=== PATIENT | female | born 1970 | race Caucasian/White ===

== ENCOUNTER 2017-01-06 09:49 | Emergency (ER) | payer OTHER ==
[~2017-01-06] VITALS: Ht 160 cm; Wt 121.0 kg
[~2017-01-06 09:49] MED LIST: CLIN-72 PO; GLIM2TAB PO; METF1000 PO
[2017-01-06 09:52] VITALS: Ht 160 cm; Wt 121.0 kg
[2017-01-06] MEDS ORDERED: AMOX500C2 PO (10:32)
[2017-01-06] MEDS ORDERED: IBUP-1542 PO (10:32)
[2017-01-06] MEDS ORDERED: BENZ100C70 PO (10:32)
[2017-01-06] MEDS ORDERED: OFLO5DRO7 BOTH EARS (10:39)
--- NOTE | 2017-01-06 17:43 | ERD ---
ER Documentation Chief Complaint Chief Complaint bilat ear pain with drainage x 2 days HPI 46-year-old female patient with a past medical history of diabetes, hyperlipidemia, presents to the ED complaining of bilateral ear pain with discharge started 3 days ago. Reports that she has noticed some yellow discharge and had some itchy ears. States that she started to also have a dry cough. Reports that she has tried taking [id number] medication without relief. Denies any foreign bodies in her ears. Denies any chest pain, shortness breath, nausea, vomiting, diarrhea, abdominal pain, neck stiffness. Denies any sick contacts. ROS All systems reviewed and are negative except as per history of present illness. Medications Home Meds Active Scripts Ofloxacin Otic (Ofloxacin Otic) 5 Ml Drops, 5 DROP BOTH EARS BID for 10 Days, # 1 BOTTLE Prov:ENRICO KHAN PA-C 01/06/17 Ibuprofen* (Motrin*) 600 Mg Tab, 600 MG PO Q6, #30 TAB Prov:ENRICO KHAN PA-C 01/06/17 Benzonatate* (Tessalon Perle*) 100 Mg Capsule, 100 MG PO Q8H Y for COUGH, #20 CAP Prov:ENRICO KHAN PA-C 01/06/17 Amoxicillin* (Amoxicillin*) 500 Mg Cap, 500 MG PO BID for 10 Days, CAP Prov:ENRICO KHAN PA-C 01/06/17 Reported Medications Clindamycin Hcl* (Clindamycin Hcl*) 150 Mg Capsule, 150 MG PO Q6 2 TABS 12/19/11 Metformin Hcl* (Metformin Hcl*) 1,000 Mg Tablet, PO BID 11/24/11 Glimepiride* (Glimepiride*) 2 Mg Tablet, PO BID 11/24/11 Allergies Allergies: Coded Allergies: No Known Allergy (Verified , 01/06/17) PMhx/Soc History of Surgery: No Anesthesia Reaction: No Hx Neurological Disorder: No Hx Respiratory Disorders: No Hx Cardiac Disorders: No Hx Psychiatric Problems: No Hx Miscellaneous Medical Probl: Yes (DM) Hx Alcohol Use: No Hx Substance Use: No Hx Tobacco Use: No Physical Exam Vitals Vital Signs Date Time Temp Pulse Resp B/P Pulse Ox O2 Delivery O2 Flow Rate FiO2 01/06/17 09:52 97.0 99 19 174/99 97 Physical Exam Const: Tyz-jdy-cfvnelpri, well-nourished. In no acute distress. Head: Atraumatic, normocephalic Eyes: Normal Conjunctiva without injection. No purulent discharge. PERRL. EOMI ENT: Normal external ear. Bilateral ear canal with erythema. Tympanic membrane decreased light reflex bilaterally. Tenderness to palpation of bilateral pinna and tragus. No tenderness to palpation of mastoid bilaterally. Slight purulent discharge noted in ear canals. Nasal canal clear with normal turbinates. Moist oropharynx without tonsillar exudates. Non-erythematous pharynx. Uvula midline. No drooling. No trismus. Neck: Full range of motion. No meningismus. No cervical lymphadenopathy. Resp: Clear to auscultation bilaterally. No wheezing, rhonchi, rales, or crackles. No accessory muscle use. No retractions. Cardio: Regular rate and rhythm. No murmurs, rubs or gallops. Abd: Soft, non tender, non distended. Normal bowel sounds. No palpable masses. No rebound tenderness. No guarding. Skin: No petechiae or rashes Back: No midline tenderness. No CVA tenderness. Ext: No cyanosis, or edema. Neur: Awake and alert. Psych: Normal Mood and Affect Procedures/MDM 46-year-old female patient with a past medical history of diabetes, hyperlipidemia presents to the ED complaining of bilateral ear pain, headache, cough that started 3 days ago. Patient is afebrile nontoxic appearing. Patient has blood pressure is 174/99. Patient's blood pressure was elevated (> 120/80) but appears stable without evidence of hypertension emergency or urgency. The patient was counseled about the risks of hypertension and urged to pursue outpatient monitoring and therapy within a week with their primary care physician. Patient will be treated for otitis media, otitis externa and a viral upper respiratory infection. Patient does not have tenderness to palpation of mastoid. Low suspicion for mastoiditis. Patient's physical exam include lungs which were clear to auscultation and a normal pulse oximetry. Patient is speaking in full sentences. There is a low suspicion for pneumonia, epiglottitis , croup, viral/strep pharyngitis, sinusitis, peritonsillar abscess, retropharyngeal abscess, meningitis, Pritehs's angina, sepsis, acute abdomen or other emergent conditions. Discharge medications: Tylenol, Amoxicillin, Ofloxacin Drops, Tessalon Perles Follow up with primary care physician in 1-2 days. Instructed patient to return to the ED sooner for any worsening symptoms. Patient's questions were answered. Patient understood and agreed with discharge plan. Patient discharged stable. Departure Diagnosis: Primary Impression: Ear pain Laterality: bilateral Qualified Code: H92.03 - Otalgia of both ears Additional Impressions: Cough Headache Headache type: unspecified Headache chronicity pattern: unspecified pattern Intractability: not intractable Qualified Code: R51 - Nonintractable headache, unspecified chronicity pattern, unspecified headache type Sore throat Condition: Stable Patient Instructions: Otitis Media, Abx Tx (Adult), Uri, Viral, No Abx (Child) , External Ear Infection (Adult) Referrals: [facility] YOU HAVE RECEIVED A MEDICAL SCREENING EXAM AND THE RESULTS INDICATE THAT YOU DO NOT HAVE A CONDITION THAT REQUIRES URGENT TREATMENT IN THE EMERGENCY DEPARTMENT. FURTHER EVALUATION AND TREATMENT OF YOUR CONDITION CAN WAIT UNTIL YOU ARE SEEN IN YOUR DOCTORS OFFICE WITHIN THE NEXT 1-2 DAYS. IT IS YOUR RESPONSIBILITY TO MAKE AN APPOINTMENT FOR [facility] CARE. IF YOU HAVE A PRIMARY DOCTOR --you should call your primary doctor and schedule an appointment IF YOU DO NOT HAVE A PRIMARY DOCTOR YOU CAN CALL OUR PHYSICIAN REFERRAL HOTLINE AT IF YOU CAN NOT AFFORD TO SEE A PHYSICIAN YOU CAN CHOSE FROM THE FOLLOWING [facility] [address] [facility]. [facility] [address] [facility]. [facility] [address] [facility]. [facility] [address] [facility]. [facility] [address] [facility]. [facility]. [address] [facility] YOU HAVE RECEIVED A MEDICAL SCREENING EXAM AND THE RESULTS INDICATE THAT YOU DO NOT HAVE A CONDITION THAT REQUIRES URGENT TREATMENT IN THE EMERGENCY DEPARTMENT. FURTHER EVALUATION AND TREATMENT OF YOUR CONDITION CAN WAIT UNTIL YOU ARE SEEN IN YOUR DOCTORS OFFICE WITHIN THE NEXT 1-2 DAYS. IT IS YOUR RESPONSIBILITY TO MAKE AN APPOINTMENT FOR FOLOW-UP CARE. IF YOU HAVE A PRIMARY DOCTOR --you should call your primary doctor and schedule and appointment IF YOU DO NOT HAVE A PRIMARY DOCTOR YOU CAN CALL OUR PHYSICIAN REFERRAL HOTLINE AT . IF YOU CAN NOT AFFORD TO SEE A PHYSICIAN YOU CAN CHOSE FROM THE FOLLOWING [facility] INSTITUTIONS: [facility] [address] [place] [address] [facility] [address] [place] [address] [facility] [address] [place] [address] [facility] URGENT CARE/SPECIALTIES Additional Instructions: Call your primary care doctor TOMORROW for an appointment during the next 2-3 days.See the doctor sooner or return here if your condition worsens before your appointment time. ENRICO KHAN PA-C Jan 06, 2017 17:43
== END 2017-01-06 11:08 | disposition home or self-care (01) ==
LOC: FTE 09:49
DX: H66.93 Otitis media, unspecified, bilateral (principal); J02.9 Acute pharyngitis, unspecified; E11.9 Type 2 diabetes mellitus without complications; Z79.84 Long term (current) use of oral hypoglycemic drugs
CPT/HCPCS: 99284

== ENCOUNTER 2017-06-05 12:14 | Inpatient (IN) | END 2017-06-10 12:55 | disposition home or self-care (01) | DRG 155 ==

== ENCOUNTER 2017-10-07 20:48 | Emergency (ER) | END 2017-10-07 23:25 | disposition home or self-care (01) ==

== ENCOUNTER 2017-11-05 10:10 | Emergency (ER) | END 2017-11-05 15:02 | disposition short-term general hospital (02) ==

== ENCOUNTER 2017-11-08 13:48 | Inpatient (IN) | END 2017-11-09 14:19 | disposition home or self-care (01) | DRG 247 ==

== ENCOUNTER 2018-04-21 15:26 | Emergency (ER) | payer OTHER ==
[~2018-04-21] VITALS: Ht 152.4 cm; Wt 118.2 kg
[~2018-04-21 15:26] MED LIST changes: +ASPI-817 PO; +ATOR40TA68 PO; -CLIN-72 PO; +CLOP75TA27 PO; +FLUT16SP17 NASAL; -GLIM2TAB PO; +INSU100I12 SQ; +INSU100I33 SC; +LIRA0.6P SQ; +LOSA25TA2 PO; -METF1000 PO; +METO-319 PO; +NICO-546 TRANSDERM; +NITR0.4T32 SL; +SERT50TA6 PO
[2018-04-21 15:32] VITALS: Ht 152.4 cm; Wt 118.2 kg
[2018-04-21] MEDS ORDERED: ERGO500013 PO (16:09)
[2018-04-21] MEDS ORDERED: LORA0.5T PO (16:10)
[2018-04-21] MEDS ORDERED: ASPI-817 PO (16:10)
[2018-04-21] MEDS ORDERED: GLIM2TAB PO (16:11)
[2018-04-21] MEDS ORDERED: CLOP75TA19 PO (16:11)
[2018-04-21] MEDS ORDERED: INSU100I33 SC (16:12)
[2018-04-21] MEDS ORDERED: METO-319 PO (16:13)
[2018-04-21] MEDS ORDERED: NITR0.4T39 SL (16:13)
[2018-04-21] MEDS ORDERED: GABA100C14 PO (16:14)
[2018-04-21] MEDS ORDERED: OMEP40CA6 PO (16:14)
[2018-04-21] MEDS ORDERED: SPIR25TA PO (16:15)
[2018-04-21] MEDS ORDERED: INSU100I12 SQ (16:16)
--- NOTE | 2018-04-21 18:09 | ERD ---
ER Documentation Chief Complaint Chief Complaint LEFT CHEST PAIN RADIATING TO LEFT SHOULDER. PA 2 MONTHS AGO HPI This is a 47-year-old female with a past medical history of hypertension, hyperlipidemia, diabetes, coronary artery disease with a previous PA status post stenting x3 4 months ago, CHF, anxiety is presenting with a transient episode of palpitations, significant anxiousness, midsternal chest pressure and tingling to her hands bilaterally. This is the 7-year anniversary of her mother's and [place] were [place] when the patient started to feel very overwhelmed. The patient does admit to marijuana use today as well. She does not endorse any lightheadedness or dizziness. She does not endorse nausea or vomiting. She was not diaphoretic during this episode. The patient's symptoms lasted approximately 30 minutes, and they have since resolved. The patient reports that this does not feel like her previous heart attack. The patient denies feeling sick recently. The patient denies fever or chills. The patient has had no headache or vision changes. The patient does not endorse neck or back pain. The patient denies abdominal pain. The patient denies changes to bowel movements or urination. The patient has had no focal deficits. The patient has had no weakness or numbness or tingling to the face or extremities. ROS All systems reviewed and are negative except as per history of present illness. Medications Home Meds Reported Medications Insulin Lispro (Humalog Kwikpen U-100) 100 Unit/1 Ml Insuln.pen, 28 UNIT SQ QPM, EA 04/21/18 Spironolactone* (Aldactone*) 25 Mg Tablet, 25 MG PO BID, #60 TAB 04/21/18 Omeprazole* (Omeprazole*) 40 Mg Capsule.dr, 40 MG PO DAILY, #30 CAP 04/21/18 Gabapentin* (Gabapentin*) 100 Mg Capsule, 100 MG PO BID, #90 CAP 04/21/18 Metoprolol Succinate* (Toprol XL*) 50 Mg Tab.er.24h, 50 MG PO DAILY, #30 TAB 04/21/18 Nitroglycerin* (Nitrostat*) 0.4 Mg Tab.subl, 0.4 MG SL Q5MIN PRN for CHEST PAIN, BOTTLE 04/21/18 Insulin Glargine,Hum.rec.anlog (Basaglar Kwikpen U-100) 100 Unit/1 Ml Insuln.pen, 30 UNIT SC QHS, EA 04/21/18 Clopidogrel Bisulfate* (Clopidogrel Bisulfate*) 75 Mg Tablet, 75 MG PO DAILY, #30 TAB 04/21/18 Glimepiride* (Glimepiride*) 2 Mg Tablet, 2 MG PO WITH BREAKFAST, TAB 04/21/18 Aspirin* (Aspirin* EC) 81 Mg Tablet.dr, 81 MG PO DAILY, TAB 04/21/18 Lorazepam* (Lorazepam*) 0.5 Mg Tablet, 0.5 MG PO HS PRN for ANXIETY, TAB 04/21/18 Ergocalciferol (Vitamin D2) (VITAMIN D2) 50,000 Unit Capsule, 58463 UNIT PO Q7D, CAP 04/21/18 Discontinued Reported Medications Fluticasone Propionate* (Fluticasone Propionate* Nasal) 50 Mcg/Nageezi - 16 Gm Nageezi.susp, 1 SPRAY NASAL BID, #1 BOTTLE TO EACH NOSTRIL 11/05/17 Sertraline Hcl* (Sertraline Hcl*) 50 Mg Tablet, 50 MG PO DAILY, #30 TAB 11/05/17 Liraglutide (Victoza 2-Brian) 0.6 Mg/0.1 Ml Pen.injctr, 1.2 MG SQ DAILY, SYR 11/05/17 Discontinued Scripts Nitroglycerin* (Nitroglycerin* SL) 0.4 Mg Tab.subl, 0.4 MG SL Q5MIN PRN for CHEST PAIN, #1 BOTTLE 3 Refills Prov:MARA LAURA 11/09/17 Clopidogrel Bisulfate (Clopidogrel) 75 Mg Tablet, 75 MG PO DAILY for 30 Days, TAB 11 Refills Prov:MARA LAURA 11/09/17 Atorvastatin* (Atorvastatin*) 40 Mg Tablet, 40 MG PO QHS, #30 TAB 3 Refills Prov:MARA LAURA 11/09/17 Nicotine* (Nicotine* Patch) 21 mg/day Patch, 1 PATCH TRANSDERM DAILY for 30 Days Prov:MARA LAURA 11/09/17 Insulin Lispro (Humalog Kwikpen U-100) 100 Unit/1 Ml Insuln.pen, 10 UNIT SQ AC A for 30 Days, EA 3 Refills Prov:MARA LAURA 11/09/17 Aspirin* (Aspirin* EC) 81 Mg Tablet.dr, 81 MG PO DAILY for 30 Days, 11 Refills Prov:MARA LAURA 11/09/17 Losartan Potassium* (Cozaar*) 25 Mg Tablet, 25 MG PO DAILY for 30 Days, TAB 3 Refills Prov:MARA LAURA 11/09/17 Insulin Glargine,Hum.rec.anlog (Basaglar Kwikpen U-100) 100 Unit/1 Ml Insuln.pen, 30 UNIT SC QHS for 30 Days, EA 3 Refills Prov:MARA LAURA 11/09/17 Metoprolol Succinate* (Toprol XL*) 50 Mg Tab.er.24h, 50 MG PO DAILY, #30 TAB 3 Refills Prov:MARA LAURA 11/09/17 Allergies Allergies: Uncoded Allergies: ANTIBIOTICS ( PT DOES NOT REMEMBER) (Allergy, Intermediate, 06/05/17) PMhx/Soc History of Surgery: Yes (stent x 3) Anesthesia Reaction: No Hx Neurological Disorder: No Hx Respiratory Disorders: No Hx Cardiac Disorders: Yes (rue dvt, cad, htn,high chol) Hx Psychiatric Problems: No Hx Miscellaneous Medical Probl: No Hx Alcohol Use: No Hx Substance Use: No Hx Tobacco Use: Yes Smoking Status: Current every day smoker FmHx Family History: diabetes Physical Exam Vitals Vital Signs Date Temp Pulse Resp B/P (MAP) Pulse Ox O2 O2 Flow FiO2 Time Delivery Rate 04/21/18 96 26 114/65 99 Room Air 19:25 (81) 04/21/18 98.5 110 16 160/80 99 15:32 (106) Physical Exam Const: No apparent distress, well-developed, well-nourished Head: Normocephalic, Atraumatic Eyes: Normal Conjunctiva. Extraocular movements intact. Pupils equal, round and reactive to light ENT: Normal External Ears, Nose and Mouth. Neck: Full range of motion. No meningismus. Resp: Clear to auscultation bilaterally, No wheezes, rales or rhonchi Cardio: Regular rate and rhythm. No murmurs, rubs or gallops Abd: Obesity, soft, non tender, non distended. Normal bowel sounds Skin: No petechiae or rashes Back: No midline tenderness. No CVA tenderness Ext: No cyanosis, or edema Neur: Awake and alert, oriented 4. Cranial nerves intact. No facial droop. Normal strength, sensation and coordination. Psych: Normal Mood and Affect Result Diagram: 04/21/18 1551 04/21/18 1551 Results 24 hrs Laboratory Tests Test 04/21/18 15:51 04/21/18 18:35 White Blood Count 10.2 10^3/ul Red Blood Count 4.97 10^6/ul Hemoglobin 13.5 g/dl Hematocrit 41.8 % Mean Corpuscular Volume 84.1 fl Mean Corpuscular Hemoglobin 27.2 pg Mean Corpuscular Hemoglobin Concent 32.3 g/dl Red Cell Distribution Width 13.5 % Platelet Count 351 10^3/UL Mean Platelet Volume 8.8 fl Immature Granulocytes % 0.500 % Neutrophils % 62.2 % Lymphocytes % 28.5 % Monocytes % 6.2 % Eosinophils % 2.0 % Basophils % 0.6 % Nucleated Red Blood Cells % 0.0 /100WBC Immature Granulocytes # 0.050 10^3/ul Neutrophils # 6.3 10^3/ul Lymphocytes # 2.9 10^3/ul Monocytes # 0.6 10^3/ul Eosinophils # 0.2 10^3/ul Basophils # 0.1 10^3/ul Nucleated Red Blood Cells # 0.0 10^3/ul Sodium Level 138 mmol/L Potassium Level 4.1 mmol/L Chloride Level 99 mmol/L Carbon Dioxide Level 26 mmol/L Anion Gap 13 Blood Urea Nitrogen 11 mg/dl Creatinine 0.37 mg/dl Est Glomerular Filtrat Rate mL/min > 60 mL/min Glucose Level 318 mg/dl Calcium Level 9.6 mg/dl Troponin I < 0.012 ng/ml < 0.012 ng/ml Creatine Kinase < 20 IU/L Creatine Kinase Index Creatinine Kinase MB (Mass) < 0.22 ng/ml Procedures/MDM MDM The patient's presentation warrants further investigation. Previous medical records, if available, were reviewed. LABS The patient's laboratory testing was obtained and reviewed. No emergent treatment was required unless described below. CBC: No E/o systemic infection or severe anemia or thrombocytopenia Chemistry: No E/o severe acidosis or alkalosis or renal failure or liver disease. Hyperglycemia without diabetic ketoacidosis Troponin: No E/o acute ischemia x 2 CKMB: Within normal limits EKG EKG read by me: Rate/Rhythm: Mild sinus tachycardia at 107 bpm with a PAC present Intervals: Normal Bland: Normal Impression: No evidence of acute ischemia. sinus tachycardia Repeat EKG read by me: Rate/Rhythm: Regular rate and rhythm at a rate of 96 bpm Intervals: Normal Bland: Normal Impression: No evidence of ischemia or arrhythmia IMAGING Imaging and Radiology interpretation reviewed. CXR FINDINGS: The heart is not enlarged. Mediastinum is not widened. No hilar masses seen. Lungs are clear of any infiltrates. There is no effusion or pneumothorax. The osseous structures appear normal. IMPRESSION: No evidence for active cardiopulmonary disease. Electronically viewed and signed by .Franco Owens MD, MD on 04/21/2018 16:07 TREATMENT/DISPOSITION The patient symptoms are most consistent with anxiety. The patient used THC/CBD today. The patient was also stressed regarding the anniversary of her mother's . The patient felt very overwhelmed and developed symptoms that appear consistent with an anxiety reaction. That said, the patient has a significant cardiac history including coronary artery disease requiring previous stenting. A full cardiac workup was completed. The patient's troponin and EKG are reassuring. The patient's repeat EKG and troponin remained reassuring. A CK-MB was also sent off that was normal. I have low suspicion for acute coronary syndrome. The patient's chest xray does not reveal pneumonia or pneumothorax or pleural effusions or pulmonary edema. The patient does not have a widened mediastinum and does not have signs or symptoms concerning for thoracic aortic aneurysm or dissection. The patient does not have pneumomediastinum or signs concerning for esophageal tear or rupture. The patient has no clinical or radiographic signs of pericardial effusion or tamponade. The patient does not have pneumoperitoneum and I have decreased suspicion of viscus perforation as possible referred pain. The patient does not have a history of heart failure and I have low suspicion for this. The patient does not have a diagnosis of COPD and is not wheezing today. The patient is not tachypneic or hypoxic. The patient is breathing comfortably and without pleuritic pain. The patient is not on hormonal therapy. The patient has no history of clotting or bleeding disorders. The patient has no calf tenderness. The patient has had no hemoptysis. I have decreased suspicion for PE. The patient's HEART score is equal to or less than 3. This stratifies the patient into the low risk (<1%) group for an major adverse cardiac event within the next 30 days. Shared decision making was enacted. The risks and benefits of admission and discharge were discussed with the patient and it was ultimately decided that the patient would be discharged with close outpatient follow up and evaluation for functional testing within 72 hours. Upon reevaluation of the patient, symptoms have improved. No emergent diagnoses were identified. At this time, I feel that the patient stable for discharge. The patient was instructed to follow-up with a primary care physician in 1-3 days. The patient will be given strict precautions with which to return to the emergency department. Prescriptions: None The patient's blood pressure was elevated at greater than 120/80 while in the emergency department. The patient was otherwise stable with no evidence of hypertensive urgency or emergency. The patient does not require admission for blood pressure control. I have discussed with the patient the risks of hypertension. I have instructed the patient to return to the ER for any new or worsening symptoms including chest pain, shortness of breath, headache, blurred vision, confusion, nausea, vomiting or LOC. I have advised the patient to follow up with the primary care physician for outpatient monitoring and treatment for hypertension in 1-3 days. Disclaimer: Inadvertent spelling and grammatical errors are likely due to EHR/dictation software use and do not reflect on the overall quality of patient care. Note that the electronic time recorded on this note does not necessarily reflect the actual time of the patient encounter. Departure Diagnosis: Primary Impression: Nonspecific chest pain Additional Impressions: Anxiousness Palpitations Paresthesias Hyperglycemia Cannabis abuse Tachycardia Condition: Stable Patient Instructions: Chest Pain, Uncertain Cause, Your Body's Response to Anxiety Additional Instructions: Thank you for for coming to [facility] for your care today. Please ask your nurse or provider if you have questions about your care today and do not leave until all your questions have been answered. Please use any medications given as directed and follow-up with your doctor (or the doctor you were referred to) in the next 1-3 days. If you do not have a primary care doctor you may follow up at the [facility] or [facility] clinic (listed below). You may also use motrin and tylenol as needed for fever and/or pain unless instructed otherwise by your provider or nurse. Indications for more urgent follow-up have been discussed, but you may return to the Emergency Department at ANY time for any worrisome or worsening symptoms. If you have abdominal pain, please know that no test or exam you received is perfect and you should follow up within 8 hours for continued pain. If you had any imaging studies today, such as an X-Ray or CT Scan, these studies will be reviewed later by a radiologist. You will be called if there are important findings that were not identified today, so make sure the contact information you provided at registration is correct. If you received any narcotic pain control medicine today, such as Vicodin, Morphine or Dilaudid, your coordination and judgment may be affected for a number of hours. Please do not drive or operate heavy machinery, and you may want someone to assist you at home. If you were given a prescription for narcotic medication, be aware that it is very addictive- use sparingly and only if necessary. PLEASE SEEK FURTHER EVALUATION AND MANAGEMENT AT YOUR DOCTORS OFFICE WITHIN THE NEXT 1-3 DAYS. IT IS YOUR RESPONSIBILITY TO MAKE AN APPOINTMENT FOR FOLOW-UP CARE. IF YOU HAVE A PRIMARY DOCTOR, PLEASE CALL THEIR OFFICE TO SCHEDULE AN APPOINTMENT FOR FOLLOW UP. IF YOU DO NOT HAVE A PRIMARY DOCTOR YOU CAN CALL OUR PHYSICIAN REFERRAL HOTLINE AT IF YOU CAN NOT AFFORD TO SEE A PHYSICIAN YOU CAN CHOSE FROM THE FOLLOWING [facility] CLINICS: [facility] [address] [facility]. [facility] [address] [facility] [address] [facility] [address] [facility] [address] [facility]. [facility]. [address] ADIA VILLANUEVA MD Apr 21, 2018 18:09
[2018-04-21 19:25] VITALS: BP 114/65; PULSE 96; RESP 26
== END 2018-04-21 19:30 | disposition home or self-care (01) ==
LOC: E/R 15:26
DX: R07.9 Chest pain, unspecified (principal); F41.9 Anxiety disorder, unspecified; R00.2 Palpitations; R20.2 Paresthesia of skin; E11.65 Type 2 diabetes mellitus with hyperglycemia; R00.0 Tachycardia, unspecified; F12.10 Cannabis abuse, uncomplicated; I11.0 Hypertensive heart disease with heart failure; I50.9 Heart failure, unspecified; I25.2 Old myocardial infarction; I25.10 Atherosclerotic heart disease of native coronary artery without angina pectoris; F17.210 Nicotine dependence, cigarettes, uncomplicated; Z98.61 Coronary angioplasty status; Z79.4 Long term (current) use of insulin; Z79.01 Long term (current) use of anticoagulants; Z79.82 Long term (current) use of aspirin
CPT/HCPCS: 36415; 71045; 80048; 82550; 82553; 84484; 85025; 93005; Z7502

== ENCOUNTER 2018-10-01 23:38 | Emergency (ER) | payer OTHER ==
[~2018-10-01] VITALS: Ht 152.4 cm; Wt 122.8 kg
[~2018-10-01 23:38] MED LIST changes: -ATOR40TA68 PO; +CLOP75TA19 PO; -CLOP75TA27 PO; +ERGO500013 PO; -FLUT16SP17 NASAL; +GABA100C14 PO; +GLIM2TAB PO; +IBUP-1542 PO; +LEVO500T48 PO; -LIRA0.6P SQ; +LORA0.5T PO; -LOSA25TA2 PO; -NICO-546 TRANSDERM; -NITR0.4T32 SL; +NITR0.4T39 SL; +OMEP40CA6 PO; -SERT50TA6 PO; +SPIR25TA PO
[2018-10-01 23:48] VITALS: Ht 152.4 cm; Wt 122.8 kg
[2018-10-02] MEDS ORDERED: SOD CHLORIDE 0.9% 500 ML IV STA (00:39)
[2018-10-02] MEDS ORDERED: KETOROLAC 30 MG INJ IV STA (00:39)
[2018-10-02] MEDS ORDERED: LEVOFLOXACIN 500MG/D5W (PMX) 100 ML IVPB ONE (01:00)
[2018-10-02 02:45] VITALS: BP 105/64; PULSE 86; RESP 20
== END 2018-10-02 03:15 | disposition home or self-care (01) ==
LOC: E/R 23:38
DX: J02.9 Acute pharyngitis, unspecified (principal); I10 Essential (primary) hypertension; I25.10 Atherosclerotic heart disease of native coronary artery without angina pectoris; F17.210 Nicotine dependence, cigarettes, uncomplicated; Z79.01 Long term (current) use of anticoagulants; Z79.4 Long term (current) use of insulin; Z79.82 Long term (current) use of aspirin; Z98.61 Coronary angioplasty status
CPT/HCPCS: 36415; 80053; 81025; 83690; 85025; 93005; 96374; 96375; J1885; J1956; J7040; Z7502

== ENCOUNTER 2018-12-13 12:09 | Emergency (ER) | payer OTHER ==
[~2018-12-13] VITALS: Ht 152.4 cm; Wt 120.5 kg
[~2018-12-13 12:09] MED LIST changes: +AMOX1TAB10 PO; +ATOR40TA68 PO; +DULA0.75 SQ; +FURO40TA4 PO; -GLIM2TAB PO; +GLIM2TAB2 PO; +INSU100I46 SQ; +METF100010 PO; +OMEP40CA38 PO; -OMEP40CA6 PO
[2018-12-13 12:13] VITALS: Ht 152.4 cm; Wt 120.5 kg
[2018-12-13] MEDS ORDERED: AMPICILLIN/SULB 3 GM/NS (PMX) 100 ML IVPB ONE (12:30)
[2018-12-13] MEDS ORDERED: DEXAMETHASONE 10 MG/ML 1 ML INJ IV ONE (12:30)
[2018-12-13] MEDS ORDERED: IOHEXOL 300MG/ML 150 ML BTL ONE (13:32)
[2018-12-13] MEDS ORDERED: SOD CHLORIDE 0.9% 100 ML ONE (13:32)
[2018-12-13] MEDS ORDERED: ACETAMINOPHEN 325 MG TAB PO PRN (15:00)
[2018-12-13] MEDS ORDERED: ONDANSETRON 4 MG INJ IV PRN (15:00)
[2018-12-13 15:01] VITALS: BP 129/79; PULSE 100; RESP 18
== END 2018-12-13 15:04 | disposition home or self-care (01) ==
LOC: E/R 12:09 → CANBEDREQ 15:26
DX: K12.2 Cellulitis and abscess of mouth (principal); I25.10 Atherosclerotic heart disease of native coronary artery without angina pectoris; I25.2 Old myocardial infarction; I10 Essential (primary) hypertension; F17.210 Nicotine dependence, cigarettes, uncomplicated; E66.01 Morbid (severe) obesity due to excess calories; Z79.4 Long term (current) use of insulin; Z79.02 Long term (current) use of antithrombotics/antiplatelets; Z79.82 Long term (current) use of aspirin; Z68.43 Body mass index [BMI] 50.0-59.9, adult
CPT/HCPCS: 36415; 70491; 80048; 81025; 85025; 96365; 96366; 96375; J0295; J1100; Q9967; Z7502; Z7610